=== PATIENT | female | born 1980 | race Caucasian/White ===

== ENCOUNTER 2017-04-27 16:58 | Emergency (ER) | payer MEDICAID, OTHER ==
[~2017-04-27] VITALS: Ht 165.1 cm; Wt 129.0 kg
[2017-04-27 17:01] VITALS: Ht 165.1 cm; Wt 129.0 kg
[2017-04-27] MEDS ORDERED: METOCLOPRAMIDE 10 MG INJ IV ONE (18:00)
[2017-04-27] MEDS ORDERED: SOD CHLORIDE 0.9% 1,000 ML IV ONE (18:00)
[2017-04-27] MEDS ORDERED: DIPHENHYDRAMINE 50 MG INJ IV ONE (18:00)
--- NOTE | 2017-04-27 18:21 | RADRPT ---
PROCEDURE: CT Head without contrast. CLINICAL INDICATION: headache TECHNIQUE: Continuous axial CT images were obtained from the base of skull to the vertex. No cont rast was administered. The calculated radiation dose measures 720 mGy centimeters. The CTDI measures 44 mGy COMPARISON: None available FINDINGS: The ventricles are symmetric and normal in size. There is no mass effect or midline shift. There i s no abnormal intra-axial or extra-axial fluid collection. There is no evidence of intracranial hem orrhage. There are no abnormal areas of increased or decreased attenuation in the brain parenchyma. The bony calvarium is intact. The orbital soft tissue contents are unremarkable. Paranasal sinuses appear clear IMPRESSION: No mass effect or acute intracranial bleed. Unremarkable CT brain. RPTAT: HBST .True Lcuio MD, Date Time Electronically viewed and signed by .True Lucio MD, MD on 04/27/2017 18:21 .T/
[2017-04-27] MEDS ORDERED: KETOROLAC 30 MG INJ IV STA (18:32)
[2017-04-27] MEDS ORDERED: FIORICET PO (18:55)
--- NOTE | 2017-04-27 19:02 | ERD ---
ER Documentation Chief Complaint Date/Time DATE: 04/27/17 TIME: 18:57 Chief Complaint headache x 2 days HPI Patient is a 36-year-old female with past medical history of hypertension who presents emergency department for concerns of a headache 2 days. Patient states she has had headaches in the past. Patient states typically her headaches to resolve with ibuprofen. Patient states despite he ibuprofen her headache has persisted. Patient describes the pain to be bilateral, throbbing in nature. Patient also does report nausea, vomiting and photophobia. Patient denies any loss consciousness. Patient denies any dizziness. Of note, patient states 4 months prior to 2 days ago, she had discontinued taking her blood pressure medication. Patient was restarted on lisinopril 10 mg daily 2 days ago. Patient does report taking this medication today. Patient denies any chest pain, shortness breath, left upper extremity pain, abdominal pain, diaphoresis or loss consciousness. ROS All systems reviewed and are negative except as per history of present illness. Medications Home Meds Active Scripts Acetamin/Butalbital/Caffeine* (Fioricet*) [id number] Tab, 1 TAB PO Q6H Y for PAIN, #20 TAB Prov:JOSEPH KITCHEN PA-C 04/27/17 Allergies Allergies: Coded Allergies: No Known Allergy (Unverified , 04/27/17) PMhx/Soc Medical and Surgical Hx: pt denies Medical Hx, pt denies Surgical Hx Hx Alcohol Use: No Hx Substance Use: No Smoking Status: Never smoker FmHx Family History: No diabetes Physical Exam Vitals Vital Signs Date Time Temp Pulse Resp B/P Pulse Ox O2 Delivery O2 Flow Rate FiO2 04/27/17 19:10 97.9 77 16 135/84 96 Room Air 04/27/17 17:01 98.0 89 18 193/91 99 Physical Exam GENERAL: Well-developed, well-nourished female. Appears in no acute distress. Speaking in full sentences. HEAD: Normocephalic, atraumatic. EYES: Pupils are equally reactive bilaterally. EOMs grossly intact. No conjunctival erythema. ENT: Moist mucous membranes. No uvula deviation. No kissing tonsils. NECK: Supple. No meningismus. Normal range of motion of the neck. LUNG: Clear to auscultation bilaterally. No rhonchi, wheezing, rales or coarse breath sounds. HEART: Regular rate and rhythm. No murmurs, rubs or gallops. EXTREMITIES: Equal pulses bilaterally. No peripheral clubbing, cyanosis or edema. No unilateral leg swelling. NEUROLOGIC: Alert and oriented x3, cooperative. Mood and affect appropriate to situation. Cranial nerves II through XII are grossly intact. Normal speech. Motor exam: 5/5 strength in upper and lower extremities. Sensory exam: Sensation intact to light touch on all four extremities. Cerebellar function exam: Rapid alternating movements intact. No dysmetria on lcmxls-tv-dbim test. Steady gait. No pronator drift SKIN: Normal color. Warm and dry. No rashes or lesions. Results 24 hrs Current Medications Medications (Trade) Dose Ordered Sig/Mayco Route PRN Reason Start Time Stop Time Status Last Admin Dose Admin Sodium Chloride (NS) 1,000 ml @ 1,000 mls/hr Q1H ONCE IV 04/27/17 18:00 04/27/17 18:59 DC 04/27/17 18:29 Diphenhydramine HCl (Benadryl) 25 mg ONCE ONCE IV 04/27/17 18:00 04/27/17 18:01 DC 04/27/17 18:29 Metoclopramide HCl (Reglan) 10 mg ONCE ONCE IV 04/27/17 18:00 04/27/17 18:01 DC 04/27/17 18:29 Ketorolac Tromethamine (Toradol) 30 mg ONCE STAT IV 04/27/17 18:32 04/27/17 18:34 DC 04/27/17 18:41 Procedures/MDM ED COURSE: The patient was stable throughout ED course. I kept the patient and/or family informed of laboratory and diagnostic imaging results throughout the ED course. DIAGNOSTIC IMAGING: Read by radiologist. Patient: SHAINA BASS : 1980 Age: 36 Sex: F MR #: [id number] DOS: 04/27/17 1755 Ordering MD: JOSEPH KITCHEN PA-C Location: [facility] Room/Bed: PROCEDURE: CT Head without contrast. CLINICAL INDICATION: headache TECHNIQUE: Continuous axial CT images were obtained from the base of skull to the vertex. No contrast was administered. The calculated radiation dose measures 720 mGy centimeters. The CTDI measures 44 mGy COMPARISON: None available FINDINGS: The ventricles are symmetric and normal in size. There is no mass effect or midline shift. There is no abnormal intra-axial or extra-axial fluid collection. There is no evidence of intracranial hemorrhage. There are no abnormal areas of increased or decreased attenuation in the brain parenchyma. The bony calvarium is intact. The orbital soft tissue contents are unremarkable. Paranasal sinuses appear clear IMPRESSION: No mass effect or acute intracranial bleed. Unremarkable CT brain. RPTAT: HBST .True Lucio MD, Date Time Electronically viewed and signed by .True Lucio MD, on 04/27/2017 18:21 .T/ CC: JOSEPH KITCHEN PA-C MEDICATIONS GIVEN: IV fluids, IV Benadryl, IV Reglan and Toradol. Note Toradol was only given after negative CT scan was obtained. Patient tolerated medication well with no adverse reactions. Patient reported improvement in pain. MEDICAL DECISION MAKING: This is a 36-year-old female presents with a headache 2 days. Patient states typically her headaches resolve with taking ibuprofen however this headache has persisted. Patient describes the pain to be bilateral in nature. Patient also reports nausea, vomiting and photophobia. Patient denies sudden onset of headache. Vital signs were reviewed. Patient was afebrile. Patient is not hypoxic. Full neurological exam was normal. Given that patient stated that this headache was significantly worse compared to previous headaches, CT scan of the head was obtained. CT head was unremarkable. She was given IV Toradol, Benadryl, Reglan and IV fluids. Patient reports significant improvement in pain. Given these findings, the patients presentation is most consistent with tension versus migraine headache. I have a much lower clinical concern for intracranial hemorrhage, meningitis, encephalitis, CO poisoning, temporal arteritis, benign intracranial hypertension, intracranial mass, glaucoma, preeclampsia, sinusitis, tension headache, migraine headache, cluster headache. PRESCRIPTIONS: Fioricet DISCHARGE: At this time, patient is stable for discharge and outpatient management. I have encouraged the patient to hydrate well. I have instructed the patient to follow- up with his/her primary care physician in 1-2 days. If symptoms persist, patient may need to see a specialist for further examinations and testing. I have instructed the patient to promptly return to the ER at any time for any new or worsening symptoms including increased increased pain, fever, nausea, vomiting, numbness, neck stiffness, visual changes, weakness or LOC. The patient and/or family expressed understanding of and agreement with this plan. All questions were answered. Home care instructions were provided. Patients blood pressure was elevated (>120/80) but appears stable without evidence of hypertensive emergency, hypertensive urgency or end-organ failure. I had discussion with the patient about the risks of hypertension. I have advised the patient to follow up with his/her primary care physician for outpatient monitoring and treatment for hypertension in 2-3 days. I have instructed the patient to return to the ER for any new or worsening symptoms including chest pain, shortness of breath, headache, blurred vision, confusion, nausea, vomiting or LOC. Departure Diagnosis: Primary Impression: Headache Headache type: unspecified Headache chronicity pattern: acute headache Intractability: not intractable Qualified Code: R51 - Acute nonintractable headache, unspecified headache type Condition: Stable Patient Instructions: Self-Care for Headaches Referrals: [facility] YOU HAVE RECEIVED A MEDICAL SCREENING EXAM AND THE RESULTS INDICATE THAT YOU DO NOT HAVE A CONDITION THAT REQUIRES URGENT TREATMENT IN THE EMERGENCY DEPARTMENT. FURTHER EVALUATION AND TREATMENT OF YOUR CONDITION CAN WAIT UNTIL YOU ARE SEEN IN YOUR DOCTORS OFFICE WITHIN THE NEXT 1-2 DAYS. IT IS YOUR RESPONSIBILITY TO MAKE AN APPOINTMENT FOR FOLOW-UP CARE. IF YOU HAVE A PRIMARY DOCTOR --you should call your primary doctor and schedule an appointment IF YOU DO NOT HAVE A PRIMARY DOCTOR YOU CAN CALL OUR PHYSICIAN REFERRAL HOTLINE AT IF YOU CAN NOT AFFORD TO SEE A PHYSICIAN YOU CAN CHOSE FROM THE FOLLOWING [facility] [address] [facility] [address] [facility]. [facility] [address] [facility] [address] [facility] [address] [facility] [address] [facility] [facility] YOU HAVE RECEIVED A MEDICAL SCREENING EXAM AND THE RESULTS INDICATE THAT YOU DO NOT HAVE A CONDITION THAT REQUIRES URGENT TREATMENT IN THE EMERGENCY DEPARTMENT. FURTHER EVALUATION AND TREATMENT OF YOUR CONDITION CAN WAIT UNTIL YOU ARE SEEN IN YOUR DOCTORS OFFICE WITHIN THE NEXT 1-2 DAYS. IT IS YOUR RESPONSIBILITY TO MAKE AN APPOINTMENT FOR FOLOW-UP CARE. IF YOU HAVE A PRIMARY DOCTOR --you should call your primary doctor and schedule and appointment IF YOU DO NOT HAVE A PRIMARY DOCTOR YOU CAN CALL OUR PHYSICIAN REFERRAL HOTLINE AT . IF YOU CAN NOT AFFORD TO SEE A PHYSICIAN YOU CAN CHOSE FROM THE FOLLOWING [facility] INSTITUTIONS: [facility] [address] [place] [address] [facility] [address] [place] [address] [facility] [address] [place] [address] Additional Instructions: Call your primary care doctor TOMORROW for an appointment during the next 1-2 days.See the doctor sooner or return here if your condition worsens before your appointment time. Drink plenty of fluids. Stay hydrated. Take medication as needed. JOSEPH KITCHEN PA-C Apr 27, 2017 19:02
[2017-04-27 19:10] VITALS: BP 135/84; PULSE 77; RESP 16; TEMP 97.9
== END 2017-04-27 19:11 | disposition home or self-care (01) ==
LOC: FTE 16:58
DX: R51 Headache (principal); I10 Essential (primary) hypertension
CPT/HCPCS: 70450; 96374; 96375; J1200; J1885; J2765; J7030; Z7502

== ENCOUNTER 2018-01-26 20:20 | Emergency (ER) | END 2018-01-26 22:00 | disposition home or self-care (01) ==

== ENCOUNTER 2019-01-13 12:43 | Emergency (ER) | payer SELFPAY ==
[~2019-01-13] VITALS: Ht 165.1 cm; Wt 104.7 kg
[~2019-01-13 12:43] MED LIST: AMOX500C2 PO; FIORICET PO; IBUP-1542 PO
[2019-01-13 12:59] VITALS: BP 156/79; PULSE 79; RESP 18; Ht 165.1 cm; Wt 104.7 kg
[2019-01-13] MEDS ORDERED: IBUP-1542 PO (14:14)
[2019-01-13] MEDS ORDERED: FLUT9.9S NASAL (14:14)
[2019-01-13] MEDS ORDERED: CETI10CA PO (14:14)
--- NOTE | 2019-01-13 14:35 | ERD ---
ER Documentation Chief Complaint Chief Complaint PT HAS FLU-LIKE SYMPTOMS HPI Patient is a 38-year-old female presents the ER for concerns of cough and congestion for the last 2 days. Patient states she has significant nasal congestion she is unable to sleep at night. She denies any fevers or chills. Patient denies nausea, vomiting, vomiting or diarrhea. Patient has no neck pain or neck stiffness. Patient states she took gzce-wok-vlwjplc medication last night which did not help her with her symptoms. ROS All systems reviewed and are negative except as per history of present illness. Medications Home Meds Active Scripts Fluticasone Propionate (Flonase Allergy Relief) 9.9 Ml [place].susp, 1 SPRAY NASAL BID, #1 BOTTLE TO EACH NOSTRIL Prov:JOSEPH KITCHEN PA-C 01/13/19 Ibuprofen* (Motrin*) 600 Mg Tab, 600 MG PO Q6, #30 TAB Prov:JOSEPH KITCHEN PA-C 01/13/19 Cetirizine Hcl* (Zyrtec*) 10 Mg Capsule, 10 MG PO DAILY, #10 TAB.CHEW Prov:JOSEPH KITCHEN PA-C 01/13/19 Ibuprofen* (Motrin*) 600 Mg Tab, 600 MG PO Q6H PRN for PAIN AND OR ELEVATED TEMP, #30 TAB Prov:PATRICK WHITE MID LEVEL PROVIDER 01/26/18 Amoxicillin* (Amoxicillin*) 500 Mg Cap, 500 MG PO TID for 10 Days, CAP Prov:PATRICK WHITE MID LEVEL PROVIDER 18 Acetamin/Butalbital/Caffeine* (Fioricet*) [id number] Tab, 1 TAB PO Q6H PRN for PAIN, #20 TAB Prov:JOSEPH KITCHEN PA-C 04/27/17 Allergies Allergies: Coded Allergies: No Known Allergy (Unverified , 04/27/17) PMhx/Soc Medical and Surgical Hx: pt denies Medical Hx, pt denies Surgical Hx Hx Alcohol Use: No Hx Substance Use: No Hx Tobacco Use: No Smoking Status: Never smoker FmHx Family History: No diabetes Physical Exam Vitals Vital Signs Date Temp Pulse Resp B/P (MAP) Pulse Ox O2 O2 Flow FiO2 Time Delivery Rate 01/13/19 97.3 79 18 156/79 99 12:59 (104) Physical Exam GENERAL: Well-developed, well-nourished female. Appears in no acute distress. HEAD: Normocephalic, atraumatic. No deformities or ecchymosis. EYE: Pupils equal, round, and reactive to light. EOMs intact. No conjunctival erythema. No eye discharge. ENT: External ear without any masses or tenderness.TM visualized bilaterally, non-erythematous, non-bulging. Nasal mucosa pink with no discharge. Nasal congestion noted on exam. Oropharynx is pink without any tonsillar erythema or exudates. No uvula deviation. No kissing tonsils. NECK: Supple. No meningismus. Normal ROM of the neck. LUNG: Clear to auscultation bilaterally. No rhonchi, wheezing, rales or coarse breath sounds. HEART: Regular rate and rhythm. No murmurs, rubs or gallops. EXTREMITES: Equal pulses bilaterally. No peripheral clubbing, cyanosis or edema. No unilateral leg swelling. NEUROLOGIC: Alert and oriented to person, place and time. Moving all four extremities. 5/5 strength in all extremities. Normal speech. Steady gait. SKIN: Normal color. Warm and dry. No rashes or lesions. Procedures/MDM MEDICAL DECISION MAKING: This is a 38-year-old female presents ER for concerns of cough, congestion throat pain times 2 days. Vital signs were reviewed. Patient was afebrile. Patient was not hypoxic. ENT exam was normal. Lung exam was normal. Given these findings, the patients presentation is most consistent with viral URI. I have a much lower clinical concern for bacterial infections including pneumonia, meningitis, sinusitis, otitis externa, acute otitis media, strep pharyngitis, epiglottitis or peritonsillar abscess. Patient was nontoxic, non- ill appearing prior to discharge per DISCHARGE: At this time, patient is stable for discharge and outpatient management. Supportive therapies such as OTC throat lozenges, salt water gurgles, popsicles and jello discussed. I have instructed the patient to follow-up with his/her primary care physician in 1-2 days. I have instructed the patient to promptly return to the ER for any new or worsening symptoms including increased pain, swelling, fever, nausea, vomiting, weakness or difficulty breathing. The patient and/or family expressed understanding of and agreement with this plan. All questions were answered. Home care instructions were provided. Disclaimer: Inadvertent spelling and grammatical errors are likely due to EHR/dictation software use and do not reflect on the overall quality of patient care. Also, please note that the electronic time recorded on this note does not necessarily reflect the actual time of the patient encounter. Departure Diagnosis: Primary Impression: Upper respiratory infection URI type: unspecified URI Qualified Codes: J06.9 - Acute upper respiratory infection, unspecified Condition: Fair Patient Instructions: Preventing Common Respiratory Infections Referrals: [facility] YOU HAVE RECEIVED A MEDICAL SCREENING EXAM AND THE RESULTS INDICATE THAT YOU DO NOT HAVE A CONDITION THAT REQUIRES URGENT TREATMENT IN THE EMERGENCY DEPARTMENT. FURTHER EVALUATION AND TREATMENT OF YOUR CONDITION CAN WAIT UNTIL YOU ARE SEEN IN YOUR DOCTORS OFFICE WITHIN THE NEXT 1-2 DAYS. IT IS YOUR RESPONSIBILITY TO MAKE AN APPOINTMENT FOR FOLOW-UP CARE. IF YOU HAVE A PRIMARY DOCTOR --you should call your primary doctor and schedule an appointment IF YOU DO NOT HAVE A PRIMARY DOCTOR YOU CAN CALL OUR PHYSICIAN REFERRAL HOTLINE AT IF YOU CAN NOT AFFORD TO SEE A PHYSICIAN YOU CAN CHOSE FROM THE FOLLOWING [facility] [address] [facility]. [facility] [address] [facility]. [facility] [address] [facility]. [facility] [address] [facility]. [facility] [address] [facility]. [facility]. [address] [facility] YOU HAVE RECEIVED A MEDICAL SCREENING EXAM AND THE RESULTS INDICATE THAT YOU DO NOT HAVE A CONDITION THAT REQUIRES URGENT TREATMENT IN THE EMERGENCY DEPARTMENT. FURTHER EVALUATION AND TREATMENT OF YOUR CONDITION CAN WAIT UNTIL YOU ARE SEEN IN YOUR DOCTORS OFFICE WITHIN THE NEXT 1-2 DAYS. IT IS YOUR RESPONSIBILITY TO MAKE AN APPOINTMENT FOR FOLOW-UP CARE. IF YOU HAVE A PRIMARY DOCTOR --you should call your primary doctor and schedule and appointment IF YOU DO NOT HAVE A PRIMARY DOCTOR YOU CAN CALL OUR PHYSICIAN REFERRAL HOTLINE AT . IF YOU CAN NOT AFFORD TO SEE A PHYSICIAN YOU CAN CHOSE FROM THE FOLLOWING [facility] INSTITUTIONS: [facility] [address] [place] [address] [facility] [address] [place] [address] [facility] [address] [place] [address] Additional Instructions: Call your primary care doctor TOMORROW for an appointment during the next 1-2 days.See the doctor sooner or return here if your condition worsens before your appointment time. JOSEPH KITCHEN PA-C Jan 13, 2019 14:35
== END 2019-01-13 14:34 | disposition home or self-care (01) ==
LOC: FTE 12:43
DX: J06.9 Acute upper respiratory infection, unspecified (principal)
CPT/HCPCS: 99282